=== PATIENT | male | born 1955 | race Caucasian/White ===

== ENCOUNTER 2023-01-10 14:54 | Emergency (ER) | payer MEDICARE, SELFPAY ==
[2023-01-10 15:05] VITALS: BP 140/99; PULSE 75; RESP 16; TEMP 36.8; O2SAT 97
--- NOTE | 2023-01-10 15:17 | CTR_ITS ---
PROCEDURE INFORMATION: Exam: CT Abdomen And Pelvis Without Contrast Exam date and time: 01/10/2023 4:07 PM Age: 67 years old Clinical indication: Abdominal pain; Acute; Additional info: Abdominal pain with blood in stool onset last night. TECHNIQUE: Imaging protocol: Computed tomography of the abdomen and pelvis without contrast. Radiation optimization: All CT scans at this facility use at least one of these dose optimization techniques: automated exposure control; mA and/or kV adjustment per patient size (includes targeted exams where dose is matched to clinical indication); or iterative reconstruction. Other protocol: This patient has received 0 known CTs and 0 known cardiac nuclear medicine studies in the 12 months prior to the current study. COMPARISON: CR XR chest 1V portable [id number] 01/10/2023 3:33 PM RADIATION DOSE METRICS: Total DLP (mGy-cm): 830.23 FINDINGS: Lungs: Minimal linear basilar scarring visualized left lung base. Liver: Normal. No mass. Gallbladder and bile ducts: Normal. No calcified stones. No ductal dilation. Pancreas: Normal. No ductal dilation. Spleen: Normal. No splenomegaly. Adrenal glands: Normal. No mass. Kidneys and ureters: Normal. No hydronephrosis. Stomach and bowel: Colonic diverticulosis, particularly of the descending and sigmoid colon. Associated component of wall thickening and adjacent mesenteric stranding is seen involving the distal descending and proximal sigmoid colon consistent with inflammation or diverticulitis. No findings to indicate adjacent fluid collection or abscess. Moderate stool volume. No bowel obstruction. Appendix: No evidence of appendicitis. Intraperitoneal space: No free fluid or ascites or free air.. Vasculature: Mild atherosclerotic vascular disease without aneurysmal dilatation of the abdominal aorta. Lymph nodes: Unremarkable. No enlarged lymph nodes. Urinary bladder: Unremarkable as visualized. Reproductive: Mild prostate enlargement. Bones/joints: Spondylotic change lumbar spine with degenerative disc disease lumbosacral junction. Soft tissues: Unremarkable. CT/CT abdomen pelvis wo con [id number] IMPRESSION: 1. Colonic diverticulosis with findings suggestive of inflammation or diverticulitis of the distal descending and proximal sigmoid colon, as noted above. 2. Other incidental findings, as noted above.
--- NOTE | 2023-01-10 15:18 | XR_ITS ---
WS: [id number] XR chest 1V portable [id number] REASON FOR EXAM: dyspnea/cough FINDINGS: Moderate tortuosity the thoracic aorta without aneurysmal dilatation. Normal heart size. Minimal calcified granulomatous disease bilaterally. No acute pulmonary parenchymal or pleural abnormality. Old healed rib fractures on the left. Biconcave compression deformities at T6 and T7. XR/XR chest 1V portable [id number] IMPRESSION: No acute cardiopulmonary abnormality. Old healed rib fractures. Presumed old compression deformities in the midthoracic spine.
--- NOTE | 2023-01-10 15:25 | W.ED.ABDPA2 ---
HPI - Abdominal Pain General: Chief Complaint: Abdominal Pain Stated Complaint: possible GI bleed Time Seen by Provider: 01/10/23 15:16 Source: patient Mode of arrival: ambulatory History of Present Illness: 67-year-old male presents emergency room with complaints of abdominal pain began around 8:00 last night he had eaten dinner 1830 he had a bowel movement had very difficult time with it took him about 30 minutes then started having diarrhea after that it was dark red through the night now he is continue to have dark red blood per rectum MD elicited complaint: abdominal pain Pertinent past history: gastrointestinal bleeding Onset (ago): hour(s) Pain Consistency: intermittent Location: LLQ Severity: moderate Quality: cramping Radiation: none Relieving factors: nothing Associated Symptoms: Reports bloating, change in bowel habits, change in stool character, GI cramping, diarrhea, hematochezia, melena, nausea and poor appetite; Denies anorexia, belching, chills, coffee ground emesis, constipation, dyspepsia, dysuria, excessive flatus, fever(s), heartburn, hematuria, hematemesis, fecal incontinence, loose stools, syncope and vomiting Review of Systems Const: Denies: fever(s) or chills Card: Denies: syncope GI: Reports: abdominal pain, nausea, diarrhea, bloating, GI cramping, change in bowel habits, change in stool character, hematochezia and melena; Denies: vomiting, hematemesis, coffee ground emesis, heartburn, constipation, belching, excessive flatus or fecal incontinence : Denies: dysuria, urinary frequency, urinary urgency or hematuria [facility] ED PFSH: Medical History (Updated 01/18/23 @ 00:08 by ALIZA Bedoya) No significant past medical history Surgical History (Updated 01/10/23 @ 15:35 by Chidi Crow DO) No pertinent past surgical history Social History (Updated 01/10/23 @ 15:35 by Chidi Crow DO) Smoking and tobacco status: never smoked Alcohol intake: never Physical Exam Const: GENERAL APPEARANCE: cooperative and comfortable ORIENTATION/CONSCIOUSNESS: Yes awake, Yes oriented to person, Yes oriented to place and Yes oriented to time HENMT: COMMON NORMALS: normocephalic, atraumatic and hearing grossly normal bilaterally HEAD & SCALP: normocephalic and atraumatic Resp: COMMON NORMALS: normal respiratory effort, No retractions, No use of accessory muscles and clear to auscultation bilaterally AUSCULTATION: clear to auscultation bilaterally Cardio: COMMON NORMALS: regular rate, regular rhythm and No murmurs present (Cardio) RATE: regular rate RHYTHM: regular rhythm GI: COMMON NORMALS: Soft to palpation and No hepatosplenomegaly present AUSCULTATION: Yes normoactive bowel sounds PALPATION: Yes Soft to palpation, No Tenderness to palpation present (GI), No Guarding due to palpation present (GI) and Yes No hepatosplenomegaly present : COMMON NORMALS: Yes no CVA tenderness BLADDER/KIDNEY EXAM: Yes no CVA tenderness Back/Pelvis: COMMON NORMALS: no CVA tenderness Extremity: COMMON NORMALS: normal to inspection, capillary refill normal, no clubbing, cyanosis or edema, no calf tenderness and no pedal edema Neuro: SENSORIUM/ORIENTATION: Yes oriented to person, Yes oriented to place and Yes oriented to time Skin: COMMON NORMALS: no rashes or lesions noted GENERAL SKIN EXAM: no rashes or lesions noted Course Vital Signs: Vital signs: Vital Signs Temperature 98.2 F 01/10/23 15:05 Pulse Rate 66 01/10/23 17:51 Respiratory Rate 16 01/10/23 17:51 Blood Pressure 123/78 01/10/23 17:51 Pulse Oximetry 95 01/10/23 17:51 Oxygen Delivery Me thod 01/10/23 17:00 MDM - Abdominal Pain Medical Decision Making Labs imaging and EKG reviewed. Patient has acute diverticulitis start Cipro and Flagyl. No sign of UTI or acute appendicitis or other intra-abdominal pathology no hernias or gallbladder involvement. No left nephrolithiasis. Clear liquid diet 2 days and increase as tolerated. Return if is worsening problems. Medical Records I reviewed the patient's medical records. Lab Data I reviewed the patient's lab results. 01/10/23 15:56 01/10/23 15:56 Labs/Radiology: Radiology Impressions Abdomen/Pelvis CT 01/10/23 15:17 IMPRESSION: 1. Colonic diverticulosis with findings suggestive of inflammation or diverticulitis of the distal descending and proximal sigmoid colon, as noted above. 2. Other incidental findings, as noted above. Chest X-Ray 01/10/23 15:18 IMPRESSION: No acute cardiopulmonary abnormality. Old healed rib fractures. Presumed old compression deformities in the midthoracic spine. Laboratory Results WBC 16.6 10^3/uL (4.0-10.0) H 01/10/23 15:56 RBC 5.02 10^6/uL (4.1-5.3) 01/10/23 15:56 Hgb 15.6 g/dL (11.7-16.6) 01/10/23 15:56 Hct 46.2 % (42.0-52.0) 01/10/23 15:56 MCV 92.0 fl (80-94) 01/10/23 15:56 MCH 31.1 pg (28.0-34.0) 01/10/23 15:56 MCHC 33.8 g/dL (30.0-36.0) 01/10/23 15:56 RDW 13.1 % (12.1-15.1) 01/10/23 15:56 Plt Count 187 10^3/cmm (130-400) 01/10/23 15:56 MPV 10.6 fL (7.4-10.4) H 01/10/23 15:56 Neut % (Auto) 82.7 % 01/10/23 15:56 Lymph % (Auto) 9.6 % 01/10/23 15:56 Mccracken % (Auto) 6.8 % 01/10/23 15:56 Eos % (Auto) 0.2 % 01/10/23 15:56 Baso % (Auto) 0.1 % 01/10/23 15:56 Neut # (Auto) 13.76 10^3/uL (1.8-7.7) H 01/10/23 15:56 Lymph # (Auto) 1.6 10^3/uL (0.8-4.8) 01/10/23 15:56 Mccracken # (Auto) 1.1 10^3/uL (0.2-0.9) H 01/10/23 15:56 Eos # (Auto) 0.0 10^3/uL (0.0-0.8) 01/10/23 15:56 Baso # (Auto) 0.0 10^3/uL (0.0-0.1) 01/10/23 15:56 Nucleated RBC % (auto) 0 % 01/10/23 15:56 Nucleated RBCs # 0.0 /100WBC 01/10/23 15:56 Sodium 137 mmol/L (136-145) 01/10/23 15:56 Potassium 3.7 mmol/L (3.5-5.1) 01/10/23 15:56 Chloride 101 mmol/L (98-107) 01/10/23 15:56 Carbon Dioxide 21 mmol/L (22-29) L 01/10/23 15:56 Anion Gap 18.7 (5-19) 01/10/23 15:56 BUN 14 mg/dL (8-23) 01/10/23 15:56 Creatinine 0.8 mg/dL (0.7-1.2) 01/10/23 15:56 GFR Calculation 95.8 mL/min (90-130) 01/10/23 15:56 Glucose 120 mg/dL (65-115) H 01/10/23 15:56 Calculated Osmolality 286 mOsm/kg (285-295) 01/10/23 15:56 Lactic Acid 1.4 mmol/L (0.5-2.2) 01/10/23 15:56 Calcium 8.9 mg/dL (8.5-10.5) 01/10/23 15:56 Magnesium 1.7 mg/dL (1.7-2.3) 01/10/23 15:56 Total Bilirubin 0.8 mg/dL (0.15-1.2) 01/10/23 15:56 AST 17 U/L (0-40) 01/10/23 15:56 ALT 12 U/L (0-41) 01/10/23 15:56 Alkaline Phosphatase 60 U/L (40-130) 01/10/23 15:56 Total Protein 7.2 g/dL (6.6-8.7) 01/10/23 15:56 Albumin 4.1 g/dL (3.5-5.2) 01/10/23 15:56 Globulin 3.1 g/dL (1.3-4.6) 01/10/23 15:56 Lipase 35 U/L (13-60) 01/10/23 15:56 Urine Color Dark yellow (Yellow) 01/10/23 16:31 Urine Appearance Cloudy (CLEAR) A 01/10/23 16:31 Urine pH 5 (5-7) 01/10/23 16:31 Ur Specific [place] 1.025 (1.005-1.030) 01/10/23 16:31 Urine Protein Trace (Negative) 01/10/23 16:31 Urine Glucose (UA) Norm (Normal) 01/10/23 16:31 Urine Ketones 1+ (Negative) H 01/10/23 16:31 Urine Blood Neg (Negative) 01/10/23 16:31 Urine Nitrate Negative (Negative) 01/10/23 16:31 Urine Bilirubin Neg (Negative) 01/10/23 16:31 Urine Urobilinogen Norm mg/dL (Negative) 01/10/23 16:31 Ur Leukocyte Esterase Negative (Negative) 01/10/23 16:31 Urine RBC 0-4 /hpf (0-2) H 01/10/23 16:31 Urine WBC 0-4 /hpf (0-5) H 01/10/23 16:31 Ur Squamous Epith Cells 0-4 /hpf (0-5) H 01/10/23 16:31 Amorphous Sediment Not Reportable 01/10/23 16:31 Urine Bacteria Trace /hpf (NONE) 01/10/23 16:31 Urine Mucus 1+ /hpf 01/10/23 16:31 Discharge Plan Discharge Patient Disposition: Home Clinical Impression: Diverticulitis Condition: Stable Prescriptions: New Cipro 500 mg tablet 500 mg PO BID Qty: 14 0RF ondansetron HCl 4 mg tablet 4 mg PO Q6H PRN (Reason: nausea and vomiting) Qty: 20 0RF No Action albuterol sulfate 90 mcg/actuation HFA aerosol inhaler 1 puff INHALATION Q6H PRN (Reason: Shortness Of Breath) finasteride 5 mg Tablet 5 mg PO DAILY Vitamin C 500 mg Tablet 500 mg PO DAILY Vitamin D3 25 mcg (1,000 unit) Tablet 25 mcg PO DAILY Discharge Orders: Discharge ED (Routine); Ordered 01/10/23 Ordered By: Chidi Crow Referrals: Eliu Villar MD [Primary Care Provider] - Discharge Diet: Full LIquid Discharge Activity: Increase activity as tolerated Patient Instructions: Diverticulitis (ED), Diverticulitis Diet (ED), Opioid Safety, Pain Management Activity Restrictions/Additional Instructions: You were seen today for bleeding from the rectum. Your evaluation showed a elevation in your white blood cell count that is likely due to diverticulitis that was seen on the CAT scan that was done. There was no perforation of the colon. Your hemoglobin is stable at 15.6. It is very likely you will continue to see some blood in the stool for the next few days. Recommend that you go to a clear liquid diet, you may take some simple carbohydrates with the oral antibiotics. If you have any further problems contact your primary care doctor or return to the emergency room. Coding Level of Care Code ED Equipment Maintenance Superintendent for Garry Abernathy
--- NOTE | 2023-01-10 15:40 | ECG_ITS ---
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 Measurements Intervals [place] Rate: 79 P: 82 [place]: 223 QRS: 68 QRSD: 88 T: 50 QT: 389 QTc: 446 Interpretive Statements SINUS RHYTHM WITH FIRST DEGREE AV BLOCK WITH OCCASIONAL SUPRAVENTRICULAR PREMATURE COMPLEXES NONSPECIFIC T-WAVE ABNORMALITY No previous ECG available for comparison Electronically Signed On 01-10-2023 16:20:44 UTILITY ENGINEER by Danyel Green M.D. [email or web address]
[2023-01-10 16:24] LABS: Basophils % 0.1 %; Eosinophils % 0.2 %; Hematocrit 46.2 % (42.0-52.0); Hemoglobin 15.6 g/dL (11.7-16.6); Lymphocytes # 1.6 10^3/uL (0.8-4.8); Lymphocytes % 9.6 %; Mean Corpuscular HGB Conc 33.8 g/dL (30.0-36.0); Mean Corpuscular Hemoglobin 31.1 pg (28.0-34.0); Mean Platelet Volume 10.6 fL (7.4-10.4); Monocytes # 1.1 10^3/uL (0.2-0.9); Monocytes % 6.8 %; Neutrophils # 13.76 10^3/uL (1.8-7.7); Neutrophils % 82.7 %; Nucleated Red Blood Cells % 0 %; Platelet Count 187 10^3/cmm (130-400); Red Blood Count 5.02 10^6/uL (4.1-5.3); Red Cell Distribution Width 13.1 % (12.1-15.1); White Blood Count 16.6 10^3/uL (4.0-10.0)
[2023-01-10 16:30] VITALS: BP 131/94; PULSE 73; O2SAT 95
[2023-01-10 17:00] VITALS: BP 129/79; PULSE 70; O2SAT 96
[2023-01-10 17:00] LABS: Alanine Aminotransferase 12 U/L (0-41); Albumin Level 4.1 g/dL (3.5-5.2); Alkaline Phosphatase 60 U/L (40-130); Aspartate Amino Transferase 17 U/L (0-40); Blood Urea Nitrogen 14 mg/dL (8-23); Calcium 8.9 mg/dL (8.5-10.5); Carbon Dioxide 21 mmol/L (22-29); Chloride 101 mmol/L (98-107); Globulin 3.1 g/dL (1.3-4.6); Glomerular Filtration Rate 95.8 mL/min (90-130); Glucose 120 mg/dL (65-115); Lactic Sepsis W/Reflex 1.4 mmol/L (0.5-2.2); Lipase 35 U/L (13-60); Magnesium 1.7 mg/dL (1.7-2.3); Osmolality Calculated 286 mOsm/kg (285-295); Sodium 137 mmol/L (136-145); Total Bilirubin 0.8 mg/dL (0.15-1.2); Total Protein 7.2 g/dL (6.6-8.7)
[2023-01-10 17:02] LABS: Anion Gap 18.7 (5-19); Potassium 3.7 mmol/L (3.5-5.1)
[2023-01-10 17:13] LABS: Add Urine Microscopic? YES; Bacteria Urine TRACE /hpf; Bilirubin Urine Neg (Negative); Blood Urine Neg (Negative); Glucose Urine UA Norm (Normal); Ketones Urine 1+ (Negative); Leukocyte Esterase Urine Negative (Negative); Mucus Urine 1+ /hpf; Nitrate Urine Negative (Negative); Protein Urine Trace (Negative); RBC Urine 0-4 /hpf (0-2); Specific Gravity, Urine 1.025 (1.005-1.030); Squamous Epithelial Cell Urine 0-4 /hpf (0-5); Urine Appearance Cloudy (CLEAR); Urine Color Dark Yellow (Yellow); Urobilinogen Urine Norm (Negative); WBC Urine 0-4 /hpf (0-5); pH Urine 5 (5-7)
[2023-01-10 17:51] VITALS: BP 123/78; PULSE 66; RESP 16; O2SAT 95
== END 2023-01-10 17:52 | disposition home or self-care (01) ==
PROVIDERS: Emergency Provider Family Medicine; PCP Family Medicine
DX: K57.92 Diverticulitis of intestine, part unspecified, without perforation or abscess without bleeding (principal)
CPT/HCPCS: 36415; 71045; 74176; 80053; 81001; 83605; 83690; 83735; 85025; 87040; 93005; 99285

== ENCOUNTER 2025-01-19 01:47 | Emergency (ER) | payer MEDICARE, SELFPAY ==
[2025-01-19 01:54] VITALS: BP 160/94; PULSE 66; RESP 18; TEMP 36.6; O2SAT 94; BMI 27.8
[2025-01-19] MEDS: tetracaine 0.5% Op Soln 4 mL Btl 1 DROP EYEAFF (02:02)
[2025-01-19] MEDS: fluorescein 1 mg Strip EYEAFF (02:02)
--- NOTE | 2025-01-19 02:09 | W.ED.EYEPROB ---
HPI - Eye Problem General: Chief complaint: Eye Problems Stated complaint: Rt EyePain Time Seen by Provider: 01/19/25 01:57 History of Present Illness: Patient arrived via private vehicle to the ER with complaints of right eye discomfort. About 8 PM last night some he thought he was using eyedrops and but accidentally grabbed some chlorhexidine soap and squirted that in his right eye. Immediately wiped it out and rinsed it out with water but is still wearing at this time. Patient's eyes were red and irritated patient has no vision deficit at this time. Related Data Home Medications ?Medication ?Instructions ?Recorded ?Confirmed albuterol sulfate 90 mcg/actuation 1 puff inhalation Q6H PRN 01/10/23 01/10/23 aerosol inhaler Shortness Of Breath ascorbic acid (vitamin C) 500 mg 500 mg PO DAILY 01/10/23 01/10/23 tablet (Vitamin C) cholecalciferol (vitamin D3) 25 25 mcg PO DAILY 01/10/23 01/10/23 mcg (1,000 unit) tablet (Vitamin D3) finasteride 5 mg tablet 5 mg PO DAILY 01/10/23 01/10/23 Previous Rx's ?Medication ?Instructions ?Recorded ciprofloxacin HCl 500 mg tablet 500 mg PO BID #14 tabs 01/10/23 (Cipro) ondansetron HCl 4 mg tablet 4 mg PO Q6H PRN nausea and 01/10/23 vomiting #20 tabs Allergies Allergy/AdvReac Type Severity Reaction Status Date / Time Sulfa (Sulfonamide Allergy Unknown Verified 01/19/25 01:58 Antibiotics) Review of Systems General: Reports: 10 or more systems reviewed and unremarkable except in HPI and below PFSH ED PFSH: Medical History No significant past medical history Surgical History No pertinent past surgical history Social History Smoking and tobacco/nicotine status: never used tobacco/nicotine Alcohol intake: never Physical Exam Const: COMMON NORMALS: no acute distress, average body habitus, patient oriented x3, no limitations, healthy appearing, alert and well nourished HENMT: COMMON NORMALS: normocephalic, atraumatic, hearing grossly normal bilaterally, external ears normal, Normal external nose present, moist oral mucous membranes and oropharynx normal HEAD & SCALP: normocephalic and atraumatic NOSE: Normal external nose present EXTERNAL EAR: Yes external ears normal Eye: COMMON NORMALS: Equal, round and reactive pupils present, EOMs intact bilaterally, negative for conjunctivae normal (Right conjunctivitis) and no scleral icterus CONJUNCTIVA: No conjunctivae normal (Right conjunctivitis) PUPIL: Yes Equal, round and reactive pupils present OTHER: anesthetized with tetracaine and fluorescein used with black light reveals no obvious corneal ulcerations or abrasions Neck/C-Spine: COMMON NORMALS: no JVD Chest: COMMONS NORMALS: normal inspection of the chest and normal palpation of entire chest wall Resp: COMMON NORMALS: normal respiratory effort, No retractions, No use of accessory muscles and clear to auscultation bilaterally AUSCULTATION: clear to auscultation bilaterally Cardio: COMMON NORMALS: no JVD, regular rate, regular rhythm, S1 normal heart sound present, S2 normal heart sound present, No gallops present (Cardio), No clicks present (Cardio), No murmurs present (Cardio) and No rub (Cardio) RATE: regular rate RHYTHM: regular rhythm HEART SOUNDS: S1 normal heart sound present and S2 normal heart sound present Neuro: COMMON NORMALS: patient oriented x3 SENSORIUM/ORIENTATION: Yes alert Course Vital Signs: Vital signs: Vital Signs Temperature 97.9 F 01/19/25 01:54 Pulse Rate 66 01/19/25 01:54 Respiratory Rate 18 01/19/25 01:54 Blood Pressure 160/94 01/19/25 01:54 Pulse Oximetry 94 01/19/25 01:54 Oxygen Delivery Me thod Room Air 01/19/25 01:54 MDM - Eye Problem Medical Decision Making Patient has negative eye exam other than conjunctivitis secondary to the chlorhexidine soap. Patient be discharged home. 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 Medical Records I reviewed the patient's medical records. Lab Data I reviewed the patient's lab results. No radiology studies performed this visit Discharge Plan Discharge Patient Disposition: Home Clinical Impression: Acute chemical conjunctivitis of right eye Condition: Stable Prescriptions: No Action albuterol sulfate 90 mcg/actuation HFA aerosol inhaler 1 puff INHALATION Q6H PRN (Reason: Shortness Of Breath) finasteride 5 mg Tablet 5 mg PO DAILY Vitamin C 500 mg Tablet 500 mg PO DAILY Vitamin D3 25 mcg (1,000 unit) Tablet 25 mcg PO DAILY Cipro 500 mg tablet 500 mg PO BID Qty: 14 0RF ondansetron HCl 4 mg tablet 4 mg PO Q6H PRN (Reason: nausea and vomiting) Qty: 20 0RF Discharge Orders: Discharge ED (Routine); Ordered 01/19/25 Ordered By: Sherwin Arnett Referrals: Eliu Villar MD [Primary Care Provider] - 1 week Patient Instructions: Conjunctivitis (ED) Activity Restrictions/Additional Instructions: If not significantly better within 24 hours please follow-up with ophthalmology. If worsening please return to the ER. Activity restrictions/additional instructions: Thank you for choosing [facility] for your healthcare needs today. Please realize that you were seen in the emergency department and that we are providing you with an emergency medical screening exam and this may not be a complete and all exclusive of all testing and/or medical workup we may need to determine your element or severity of your illness. It is very important that you follow-up as instructed with your primary care provider or specialist for the additional evaluation and to discuss your medical treatment plan. You may return to the emergency department should you have concerns or if your condition changes or worsens in any way. Print Language: [place] Verde[place] Coding Level of Care Code ED Bank Teller for Garry Abernathy
[2025-01-19 02:20] VITALS: BP 160/94; PULSE 62; RESP 16; O2SAT 99
== END 2025-01-19 02:25 | disposition home or self-care (01) ==
PROVIDERS: Emergency Provider Emergency Medicine; PCP Family Medicine
DX: H10.211 Acute toxic conjunctivitis, right eye (principal)
CPT/HCPCS: 99283

== ENCOUNTER 2025-04-29 06:50 | Outpatient (CLI) | payer MEDICARE, SELFPAY ==
--- NOTE | 2025-04-29 07:16 | MR_ITS ---
WS: [id number] MRI HEAD WITH CONTRAST WITH ATTENTION TO THE INTERNAL AUDITORY CANALS TECHNIQUE: Sagittal T1, T2 axial, T2 axial flair, axial susceptibility weighted imaging, axial diffusion weighted images, and coronal T2 images were obtained. Pre and post T1 axial and post T1 coronal images. ADC and FSPGR images. Post gadolinium images with attention to the internal auditory canals. Axial fiesta imaging. CLINICAL INFORMATION: BILATERAL HEARING LOSS COMPARISON: None. FINDINGS: No evidence of restricted diffusion to suggest acute ischemia. Mild small vessel changes. Moderate parenchymal volume loss. Tiny chronic lacunar infarct RIGHT inferior cerebellum. Normal vascular flow voids at the skull base. No extra- axial fluid collections. No evidence of mass or mass effect. Mild mucosal thickening in the paranasal sinuses. Mastoid air cells are well aerated. No hemosiderin on susceptibility-weighted images. No other acute findings. MR/MR iac's wo/w con* [id number] IMPRESSION: 1. No evidence of restricted diffusion to suggest acute ischemia. 2. Proximal 7th and 8th cranial nerves appear normal. No evidence of enhancing IAC or CP angle mass. 3. Mastoid air cells are well aerated. 4. Mild small vessel changes with moderate parenchymal volume loss. 5. No hemosiderin on the susceptibly weighted images.
== END 2025-04-29 06:51 | disposition home or self-care (01) ==
PROVIDERS: PCP Family Medicine; Visit Provider Specialist
DX: H90.3 Sensorineural hearing loss, bilateral (principal); R93.0 Abnormal findings on diagnostic imaging of skull and head, not elsewhere classified; J34.89 Other specified disorders of nose and nasal sinuses
CPT/HCPCS: 70553

== ENCOUNTER 2025-09-08 09:06 | Emergency (ER) | payer MEDICARE, SELFPAY ==
[2025-09-08] VITALS (14 sets, daily range): BP systolic 78–103; BP diastolic 43–54; PULSE 47–75; RESP 13–28; O2SAT 92–99; BMI 27.8
--- NOTE | 2025-09-08 09:13 | CT_ITS ---
WS: [id number] CT HEAD TECHNIQUE: Noncontrast CT of the head obtained from the skullbase to the vertex. CLINICAL INFORMATION: Symptoms of acute stroke COMPARISON: None. DLP: [address] scans at [facility] use at least one of these dose optimization techniques: automated exposure control; mA and/or kV adjustment per patient size (includes targeted exams where dose is matched to clinical indication); or iterative reconstruction. FINDINGS: No evidence of intracranial hemorrhage or mass effect. Ventricular system and basal cisterns are patent. Mild small vessel changes with mild parenchymal volume loss. No extra-axial fluid collections. No evidence of mass or mass effect. Vascular calcification. Low-attenuation change adjacent to the posterior horn LEFT lateral ventricle was present on the prior MRIa Paranasal sinuses and mastoid air cells are well aerated. .Normal visualized soft tissues. CT/CT head thrombolytic [id number] IMPRESSION: 1. No evidence of intracranial hemorrhage or mass effect. 2. No acute intracranial findings. Notified Jenniffer Lima MD at 09/08/2025 9:32 AM.
--- NOTE | 2025-09-08 09:13 | XRR_ITS ---
PROCEDURE INFORMATION: Exam: XR Chest Exam date and time: 09/08/2025 10:18 AM Age: 69 years old Clinical indication: Chest wall pain; Additional info: CVA TECHNIQUE: Imaging protocol: Radiologic exam of the chest. Views: 1 view. COMPARISON: CT angio chest [id number] 09/08/2025 9:31 AM FINDINGS: Lungs: Unremarkable. No consolidation. Pleural spaces: Unremarkable. No pleural effusion. No pneumothorax. Heart/Mediastinum: The heart is slightly enlarged. There is calcified plaque involving the aorta. Bones/joints: Unremarkable. XR/XR chest 1V portable [id number] IMPRESSION: 1. Mild cardiomegaly.
--- NOTE | 2025-09-08 09:13 | CT_ITS ---
WS: [id number] CTA HEAD AND NECK TECHNIQUE: Contrast enhanced CTA of the head and neck with coronal and sagittal reformatted images and maximum intensity projection (MIP) images. NASCET criteria utilized. CLINICAL INFORMATION: cva COMPARISON: None. DLP: 506.[address] scans at [facility] use at least one of these dose optimization techniques: automated exposure control; mA and/or kV adjustment per patient size (includes targeted exams where dose is matched to clinical indication); or iterative reconstruction. FINDINGS: RIGHT: RIGHT common carotid artery is patent. No significant RIGHT ICA stenosis. Tortuous RIGHT ICA at the skull base. RIGHT ICA remains patent to the skull base. Dissection involves the innominate artery origin but remains perfused by the true lumen LEFT: Dissection involves the LEFT common carotid artery origin but remains perfused by the true lumen. No significant LEFT ICA stenosis. Extremely tortuous LEFT cervical ICA remains patent to the skull base. Beading like irregularity in both cervical ICAs distal to the bifurcation may be due to atherosclerosis or possibly fibromuscular dysplasia. Extremely tortuous cervical ICAs bilaterally. INTRACRANIAL CTA: No proximal flow-limiting stenosis. Basilar artery is patent. Normal vascularity to the [employer] territory bilaterally. Tortuous ICAs are patent at the skull base. Small RIGHT A1 segment. Normal vascularity to the KAY and MCA territories bilaterally. No proximal flow-limiting intracranial stenosis. CT/CT angio headneck* [id number] IMPRESSION: 1. 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 2. Common carotid arteries remain perfused with no significant ICA stenosis at the bifurcations. Tortuous ICAs are patent to the skull base. 3. No flow-limiting intracranial stenosis. 4. Dissection extends into the innominate origin and LEFT common carotid arter y origin which remain perfused by the true lumen. 5. Dissection involves the LEFT subclavian artery origin which remains perfuse d by the true lumen. 6. LEFT dominant vertebral artery. Smaller but patent RIGHT vertebral artery. 7. Beading like irregularity in both cervical ICAs distal to the bifurcation m ay be due to atherosclerosis or possibly fibromuscular dysplasia. Extremely tor tuous cervical ICAs bilaterally. Notified Jenniffer Lima MD at 09/08/2025 9:54 AM.
--- NOTE | 2025-09-08 09:16 | ECG_ITS ---
[employer] 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
--- NOTE | 2025-09-08 09:20 | W.ED.NEUROSD ---
HPI - Neuro Symptoms/Deficit General: Chief Complaint: Neuro Symptoms/Deficit Stated Complaint: Eyes Blurry Confused Dizzy Time Seen by Provider: 09/08/25 09:09 Source: patient Mode of arrival: ambulatory Limitations: no limitations History of Present Illness: 69-year-old male states that he had sudden onset of feeling very dizzy and blurry vision with difficulty seeing it started at 715 this morning. Patient denies any headaches he is hypotensive. Denies any vomiting or diarrhea. Denies any history of stroke in the past. States he is having a hard time walking due to the dizziness. He has no slurred speech or one-sided weakness. No facial droop Related Data Home Medications ?Medication ?Instructions ?Recorded ?Confirmed albuterol sulfate 90 mcg/actuation 1 puff inhalation Q6H PRN 01/10/23 09/08/25 aerosol inhaler Shortness Of Breath ascorbic acid (vitamin C) 500 mg 500 mg PO DAILY 01/10/23 09/08/25 tablet (Vitamin C) cholecalciferol (vitamin D3) 25 25 mcg PO DAILY 01/10/23 09/08/25 mcg (1,000 unit) tablet (Vitamin D3) finasteride 5 mg tablet 5 mg PO DAILY 01/10/23 09/08/25 irbesartan 150 mg tablet 150 mg PO DAILY 09/08/25 09/08/25 Allergies Allergy/AdvReac Type Severity Reaction Status Date / Time Sulfa (Sulfonamide Allergy Unknown Verified 01/19/25 01:58 Antibiotics) FOR[facility]LY [facility] ED PFSH: Medical History (Updated 09/08/25 @ 10:52 by Jenniffer Lima MD) No significant past medical history Surgical History No pertinent past surgical history Social History Smoking and tobacco/nicotine status: never used tobacco/nicotine Alcohol intake: never NIH stroke score NIHSS: Level Of Consciousness - 1a: 0 Level Of Consciousness Questions - 1b: One Correct Level Of Consciousness Commands - 1c: Both Correct Best Gaze - 2: Normal Visual Mcdonough - 3: Bilateral Facial Palsy - 4: Normal Motor Arm Right - 5: No Drift Motor Arm Left - 5: No Drift Motor Leg Right - 6: No Drift Motor Leg Left - 6: No Drift Limb Ataxia - 7: Absent Sensory - 8: Normal Best Language - 9: No Aphasia Dysarthia - 10: Normal Extinction And Inattention - 11: 0 Score: Total Score: 4 Physical Exam Const: COMMON NORMALS: patient oriented x3 HENMT: COMMON NORMALS: normocephalic and atraumatic HEAD & SCALP: normocephalic and atraumatic Eye: COMMON NORMALS: Equal, round and reactive pupils present and EOMs intact bilaterally PUPIL: Yes Equal, round and reactive pupils present OTHER: unable to recognize fingers with either eyes Neck/C-Spine: COMMON NORMALS: full ROM and supple Chest: COMMONS NORMALS: normal inspection of the chest Resp: COMMON NORMALS: normal respiratory effort, No retractions, No use of accessory muscles and clear to auscultation bilaterally AUSCULTATION: clear to auscultation bilaterally Cardio: COMMON NORMALS: regular rate, regular rhythm and No murmurs present (Cardio) RATE: regular rate RHYTHM: regular rhythm GI: COMMON NORMALS: Normal to inspection, nondistended, normoactive bowel sounds present, Soft to palpation, non-tender and no masses PALPATION: Yes Soft to palpation Extremity: COMMON NORMALS: normal to inspection and full ROM Neuro: COMMON NORMALS: patient oriented x3 and moves all extremities; negative for no focal motor deficits Psych: COMMON NORMALS: mental status grossly normal, Normal thought process present and cooperative THOUGHT PROCESS: Normal thought process present Skin: COMMON NORMALS: no rashes or lesions noted and no wounds GENERAL SKIN EXAM: no rashes or lesions noted Course Vital Signs: Vital signs: Vital Signs Pulse Rate 48 L 09/08/25 09:55 Respiratory Rate 23 H 09/08/25 09:55 Blood Pressure 103/49 09/08/25 09:45 Pulse Oximetry 97 09/08/25 09:55 Oxygen Delivery Me thod Room Air 09/08/25 09:09 MDM - Neuro Symptoms/Deficit Medical Decision Making Patient presents here with lightheadedness along with some vision loss CT and CT angio showed no signs of stroke but CT of his chest does show an aortic dissection both ascending and descending. Patient has had no hypertension here. I initially spoke to [facility] and their CT surgeon stated that he was not available. I then called [facility] and their CT surgeon wanted surgery and they had no backup. I then called [facility] their CT surgeon did except and I spoke to the emergency room physician Dr. Reilly who is excepting ER to ER and will fly there at this time. Patient has been stable while in the ER I went over all of this with him and his and they understand agree to plan to transfer for high-level care of CT surgery Medical Records I reviewed the patient's medical records. Lab Data I reviewed the patient's lab results. 09/08/25 09:17 09/08/25 09:[address] 09/08/25 09:13 IMPRESSION: 1. No evidence of intracranial hemorrhage or mass effect. 2. No acute intracranial findings. Notified Jenniffer Lima MD at 09/08/2025 9:32 AM. Head/Neck CTA 09/08/25 09:13 IMPRESSION: 1. Acute ascending and descending aortic dissection extending into the upper abdomen seen on the following chest imaging. 2. Common carotid arteries remain perfused with no significant ICA stenosis at the bifurcations. Tortuous ICAs are patent to the skull base. 3. No flow-limiting intracranial stenosis. 4. Dissection extends into the innominate origin and LEFT common carotid artery origin which remain perfused by the true lumen. 5. Dissection involves the LEFT subclavian artery origin which remains perfused by the true lumen. 6. LEFT dominant vertebral artery. Smaller but patent RIGHT vertebral artery. 7. Beading like irregularity in both cervical ICAs distal to the bifurcation may be due to atherosclerosis or possibly fibromuscular dysplasia. Extremely tortuous cervical ICAs bilaterally. Notified Jenniffer Lima MD at 09/08/2025 9:54 AM. Chest CTA 09/08/25 09:30 IMPRESSION: 1. Ascending and descending aortic dissection with true and false lumens extending from just distal to the aortic root to the upper abdomen. 2. Great vessels are involved by the dissection but remained well perfused by the true lumen. Mild narrowing of the RIGHT innominate origin 3. Poor perfusion to the celiac which almost exclusively arises from the false lumen 4. SMA and proximal renal arteries remain patent arising from the true lumen. Dissection terminates just above the renal artery origins Notified Jenniffer Lima MD at 09/08/2025 10:00 AM. Laboratory Results WBC 8.57 10^3/uL (3.29-11.43) 09/08/25 09:17 RBC 4.41 10^6/uL (3.85-5.65) 09/08/25 09:17 Hgb 13.90 g/dL (11.27-16.99) 09/08/25 09:17 Hct 40.1 % (37-53) 09/08/25 09:17 MCV 90.9 fl (82-101) 09/08/25 09:17 MCH 31.5 pg (27-33) 09/08/25 09:17 MCHC 34.7 g/dL (30-55) 09/08/25 09:17 RDW 13.8 % (12.1-15.1) 09/08/25 09:17 Plt Count 159 10^3/cmm (157-399) 09/08/25 09:17 MPV 9.8 fL (7.4-10.4) 09/08/25 09:17 Neut % (Auto) 62.9 % 09/08/25 09:17 Lymph % (Auto) 25.8 % 09/08/25 09:17 Stewart % (Auto) 7.5 % 09/08/25 09:17 Eos % (Auto) 2.6 % 09/08/25 09:17 Baso % (Auto) 0.7 % 09/08/25 09:17 Neut # (Auto) 5.40 10^3/uL (1.8-7.7) 09/08/25 09:17 Lymph # (Auto) 2.2 10^3/uL (0.8-4.8) 09/08/25 09:17 Stewart # (Auto) 0.6 10^3/uL (0.2-0.9) 09/08/25 09:17 Eos # (Auto) 0.2 10^3/uL (0.0-0.8) 09/08/25 09:17 Baso # (Auto) 0.1 10^3/uL (0.0-0.1) 09/08/25 09:17 Nucleated RBC % (auto) 0 % 09/08/25 09: Nucleated RBCs # 0.0 /100WBC 09/08/25 09:17 PT 14.10 SECONDS (12.1-14.9) 09/08/25 09:17 INR 1.02 (0.8-1.2) 09/08/25 09:17 APTT 26.3 SECONDS (23.9-36.7) 09/08/25 09:17 Sodium 139 mmol/L (136-145) 09/08/25 09:17 Potassium 3.8 mmol/L (3.5-5.1) 09/08/25 09:17 Chloride 101 mmol/L (98-107) 09/08/25 09:17 Carbon Dioxide 25 mmol/L (22-29) 09/08/25 09:17 Anion Gap 16.8 (5-19) 09/08/25 09:17 BUN 14 mg/dL (8-23) 09/08/25 09:17 Creatinine 1.1 mg/dL (0.7-1.2) 09/08/25 09:17 GFR Calculation Not Reportable 09/08/25 09:17 Glucose 126 mg/dL (65-115) H 09/08/25 09:17 POC Glucose 109 mg/dL (70-110) 09/08/25 09:15 Calculated Osmolality 290 mOsm/kg (285-295) 09/08/25 09:17 Calcium 8.8 mg/dL (8.5-10.5) 09/08/25 09:17 Total Bilirubin 0.6 mg/dL (0.15-1.2) 09/08/25 09:17 AST 17 U/L (0-40) 09/08/25 09:17 ALT 12 U/L (0-41) 09/08/25 09:17 Alkaline Phosphatase 61 U/L (40-130) 09/08/25 09:17 Troponin T Baseline 10 ng/L (0-15) 09/08/25 09:17 Total Protein 6.5 g/dL (6.6-8.7) L 09/08/25 09:17 Albumin 3.8 g/dL (3.5-5.2) 09/08/25 09:17 Globulin 2.7 g/dL (1.3-4.6) 09/08/25 09:17 All radiology interpretation(s) finalized by discharge EKG Data EKG 1: I personally reviewed and interpreted this EKG as follows: EKG interpretation date: 09/08/25 EKG interpretation time: 09:37 Interpretation: sinus gurvinder hr [address] or t wave abnormalities Critical Care Time Critical Care Time: Critical Care Time: Yes Total Critical Care Time: 40 Attestation: The high probability of a clinically significant, sudden or life threatening deterioration of the patient's cv/neuro system(s) required my full and direct attention, intervention and personal management. The critical care time is as shown. This time is in addition to time spent performing any reported procedures but includes the following: [x] Data and vital sign review and interpretation [x] Patient assessment, examination and intervention [x] Documentation [x] Medication orders and management Discharge Plan Discharge Patient Disposition: Xfer Short-Term Hosp Clinical Impression: Acute thoracic aortic dissection Condition: Stable Referrals: Eliu Villar MD [Primary Care Provider, [facility]] Print Language: Nepali Coding Level of Care Code ED National Business Director for Garry Abernathy
--- NOTE | 2025-09-08 09:30 | CT_ITS ---
WS: [id number] CTA THORACIC TECHNIQUE: Contrast enhanced CTA of the thoracic aorta with coronal and sagittal reformatted images and maximum intensity projection (MIP) images. CLINICAL INFORMATION: ABNORMAL STUDY COMPARISON: None. DLP: 473.[address] scans at [facility] use at least one of these dose optimization techniques: automated exposure control; mA and/or kV adjustment per patient size (includes targeted exams where dose is matched to clinical indication); or iterative reconstruction. FINDINGS: Ascending and descending aortic dissection extending from proximal aorta just distal to the root into the upper abdominal aorta. True and false lumens are visualized. Dissection involves all the origins of the great vessels which remain well perfused by the true lumen. Mild narrowing of the innominate origin. LEFT common carotid artery origin and LEFT subclavian artery origins remain well perfused. Takeoffs of the vertebral arteries are patent. LEFT dominant vertebral artery. Proximal main pulmonary arteries are normal. No pericardial effusion. Poor perfusion to the celiac which arises from the false lumen. SMA remains patent. Proximal renal arteries are patent. Small esophageal hiatal hernia. Adrenal glands are normal. Lungs are well aerated. CT/CT angio chest [id number] IMPRESSION: 1. Ascending and descending aortic dissection with true and false lumens exten ding from just distal to the aortic root to the upper abdomen. 2. Great vessels are involved by the dissection but remained well perfused by the true lumen. Mild narrowing of the RIGHT innominate origin 3. Poor perfusion to the celiac which almost exclusively arises from the false lumen 4. SMA and proximal renal arteries remain patent arising from the true lumen. Dissection terminates just above the renal artery origins Notified Jenniffer Lima MD at 09/08/2025 10:00 AM.
[2025-09-08 09:33] LABS: Hematocrit 40.1 % (37-53); Hemoglobin 13.90 g/dL (11.27-16.99); Mean Corpuscular HGB Conc 34.7 g/dL (30-55); Mean Corpuscular Hemoglobin 31.5 pg (27-33); Mean Corpuscular Volume 90.9 fl (82-101); Nucleated Red Blood Cells % 0 %; Platelet Count 159 10^3/cmm (157-399); Red Blood Count 4.41 10^6/uL (3.85-5.65); White Blood Count 8.57 10^3/uL (3.29-11.43)
[2025-09-08] MEDS: iohexol 350 mg/mL 500 mL Btl (per mL) IV (09:40)
[2025-09-08 09:43] LABS: Alanine Aminotransferase 12 U/L (0-41); Albumin Level 3.8 g/dL (3.5-5.2); Alkaline Phosphatase 61 U/L (40-130); Anion Gap 16.8 (5-19); Aspartate Amino Transferase 17 U/L (0-40); Blood Urea Nitrogen 14 mg/dL (8-23); Calcium 8.8 mg/dL (8.5-10.5); Carbon Dioxide 25 mmol/L (22-29); Chloride 101 mmol/L (98-107); Creatinine Clr Calc Pharmacy 72.9678; Globulin 2.7 g/dL (1.3-4.6); Glucose 126 mg/dL (65-115); Osmolality Calculated 290 mOsm/kg (285-295); Potassium 3.8 mmol/L (3.5-5.1); Sodium 139 mmol/L (136-145); Total Protein 6.5 g/dL (6.6-8.7)
--- NOTE | 2025-09-08 09:48 | PC.PHAR ---
Verified current medications with MELCHOR Lazar
[2025-09-08 09:58] LABS: INR 1.02 (0.8-1.2); Prothrombin Time 14.10 SECONDS (12.1-14.9); Troponin(5th) Baseline 10 ng/L (0-15)
[2025-09-08 09:59] LABS: Partial Thromboplastin Time 26.3 SECONDS (23.9-36.7)
--- NOTE | 2025-09-08 10:12 | DCPLANNER ---
0921 Dr. Lima asked for telestroke [facility] 3 LKW [id number]. called at 0921 spoke to [facility] until 09 At 0946 [facility] was on telestroke and Janie said to activate the stand by AEL. AEL gave a 24 min ETA for ael 12 from [facility].
== END 2025-09-08 11:09 | disposition short-term general hospital (02) ==
PROVIDERS: Emergency Provider Emergency Medicine; PCP Family Medicine
DX: I71.010 Dissection of ascending aorta (principal); I71.012 Dissection of descending thoracic aorta
CPT/HCPCS: 36415; 36416; 70450; 70496; 70498; 71045; 71275; 80053; 82962; 84484; 85025; 85610; 85730; 93005; 99285; J7030

== ENCOUNTER 2025-11-09 11:49 | Outpatient (CLI) | payer MEDICARE, SELFPAY ==
--- NOTE | 2025-11-09 11:53 | CT_ITS ---
WS: [id number] CT CHEST ANGIOGRAPHY WITH REFORMATS HISTORY: ELEVATED D DIMER TECHNIQUE: Contiguous axial images are obtained through the chest during arterial injection of intravenous contrast. Images are reconstructed to evaluate the pulmonary arteries. MIP imaging also reviewed. All CT scans at [facility] use at least one of these dose optimization techniques: automated exposure control; mA and/or kV adjustment per patient size (includes targeted exams where dose is matched to clinical indication); or iterative reconstruction. CONTRAST: Omnipaque 350; 100 mL IV. DLP: 402.15 mGy.cm COMPARISON: 09/08/2025, chest radiograph 11/07/2025 Good opacification of the pulmonary arteries. Normal size pulmonary artery. No central filling defect in the main pulmonary artery. Thrombus is noted in a segmental branch extending into subsegmental branches in the RIGHT lower lobe. No additional emboli identified. No RIGHT heart strain. LEFT ventricle is slightly dilated. There is correct course of regurgitation into the hepatic veins. No pericardial or pleural effusions. Thoracic aorta is ectatic and mildly dilated. Known aortic dissection noted on 09/08/2025. This study is not adequate to evaluate the aortic dissection as no IV contrast was is within the aorta. Patient is undergone a repair procedure. Prior CABG. Mild anterior wedging of T7. CT/CT angio chest PE protcl [id number] IMPRESSION: 1. Minimal burden DVT in a peripheral RIGHT lower lobe segmental to subsegment al pulmonary artery. 2. Dilated thoracic aorta. This study was protocoled to evaluate the pulmonary arteries. No contrast in the aorta to evaluate the dissection that was noted o n 09/08/2025 or the repair. 3. Mild LEFT heart enlargement. LEFT heart appears larger than it did on the p rior study from 09/08/2025. 4. Tricuspid regurgitation into the hepatic veins. 5. No pneumonia. Notified Eliu Villar MD at 11/09/2025 12:[address] Villar was unavailable at the time of this interpretation. Mr. Fu was directed back to Dr. Villar office at this time.
[2025-11-09] MEDS: iohexol 350 mg/mL 500 mL Btl (per mL) IV (12:26)
== END 2025-11-09 11:50 | disposition home or self-care (01) ==
LOC: RAD 11:51
PROVIDERS: PCP Family Medicine; Visit Provider Family Medicine
DX: R79.89 Other specified abnormal findings of blood chemistry (principal); I77.810 Thoracic aortic ectasia; I51.7 Cardiomegaly; I36.1 Nonrheumatic tricuspid (valve) insufficiency
CPT/HCPCS: 71275

== ENCOUNTER → 2025-11-10 14:41 | Outpatient (BNVA) | payer MEDICARE, SELFPAY | PROVIDERS: PCP Family Medicine; Visit Provider Internal Medicine Cardiovascular Disease | DX: I35.1 Nonrheumatic aortic (valve) insufficiency (principal); Z51.89 Encounter for other specified aftercare; I10 Essential (primary) hypertension; I26.99 Other pulmonary embolism without acute cor pulmonale; Z98.890 Other specified postprocedural states; R07.9 Chest pain, unspecified; I49.8 Other specified cardiac arrhythmias; I44.0 Atrioventricular block, first degree | CPT/HCPCS: 93005; 99204 ==

== ENCOUNTER 2025-11-25 08:22 | Outpatient (CLI) | payer MEDICARE, SELFPAY ==
--- NOTE | 2025-11-25 08:30 | USCV_ITS ---
Keyon Fu Age: 70 Gender: M : 1955 Exam Date: 11/25/2025 08:55 Ordering Phys: Ashish Martinez MD ([email or web address]) Technologist: OSIEL Exam Location: [facility] Indication: h/o ascending AO repair BP: 164 / 90 HR: 85 Rhythm: Sinus Technical Quality: Adequate MEASUREMENTS (Male / Female) Normal Values 2D ECHO LV Diastolic Diameter PLAX 5.7 cm 4.2 - 5.9 / 3.9 - 5.3 cm IVS Diastolic Thickness 1.0 cm 0.6 - 1.0 / 0.6 - 0.9 cm IVS Systolic Thickness 1.0 cm LVPW Diastolic Thickness 0.9 cm 0.6 - 1.0 / 0.6 - 0.9 cm LVPW Systolic Thickness 1.0 cm LVOT Diameter 2.1 cm LV Ejection Fraction 2D Teich 14.8 % LV Ejection Fraction MOD 4C 56.7 % LV Ejection Fraction MOD 2C 53.9 % LV Ejection Fraction 2C AL 54.1 % LA Diameter 2.9 cm RA Systolic Volume 4C AL 40.9 ml RA Systolic Volume 4C MOD 38.4 ml LA Sys Volume AL 35.0 cm cubed LA Sys Volume Index AL 16.0 cm cubed/m squared Aorta at Sinotubular Diameter 3.1 cm IVC Diameter 2.3 cm M-MODE LA Ao Ratio MM 1.1 AV Cusp Separation MM 1.9 cm DOPPLER AV Peak Velocity 95.0 cm/s LVOT Peak Velocity 63.0 cm/s AV Area Cont Eq vti 2.4 cm squared AV Area Cont Eq pk 2.3 cm squared MV Peak Velocity 71.0 cm/s MV Area PHT 4.8 cm squared Mitral E to A Ratio 1.0 TR Peak Velocity 104.0 cm/s TR Peak Gradient 4.3 mmHg TV Peak E Velocity 40.0 cm/s PV Peak Velocity 71.0 cm/s FINDINGS Left Ventricle Normal left ventricular cavity size. Akinesis of the basal inferoseptal and mid and basal inferior wall segments with overall normal ejection fraction of 54%. Normal left ventricular wall thickness. Indeterminate left ventricular diastolic function due to absence of complete TR velocity envelope Right Ventricle Normal right ventricular size and systolic function. Right Atrium Normal right atrial size. Left Atrium Normal left atrial size. IA Septum Normal appearance of the interatrial septum. Mitral Valve Normal mitral valve structure. No mitral valve stenosis or regurgitation. Aortic Valve Aortic valve not well-visualized. No aortic valve stenosis by Doppler. Mild aortic valve regurgitation. Tricuspid Valve Unable to accurately measure pulmonary pressure due to lack of TR jet. Normal pulmonary pressure. Pulmonic Valve Normal pulmonic valve structure. No pulmonic valve stenosis or regurgitation. Pericardium No pericardial effusion. Aorta Aortic root not well-visualized. Status post aorta graft repair. Aorta size looks grossly normal. IVC Dilated IVC with greater than 50% collapse with inspiration. Estimated right atrial pressure 8 mmHg. CONCLUSIONS Segmental left ventricular wall motion abnormality with akinesis of the basal inferoseptal and mid and basal inferior wall segments with overall normal ejection fraction of 54%. Normal right ventricular size and systolic function. Status post aorta graft repair. Aorta size looks grossly normal. Mild aortic valve regurgitation. Ashish Martinez MD, FACC (Electronically Signed) Final Date: 30 November 2025 17:18 S
== END 2025-11-25 08:23 | disposition home or self-care (01) ==
LOC: RAD 08:22
PROVIDERS: PCP Family Medicine; Visit Provider Internal Medicine Cardiovascular Disease
DX: Z98.890 Other specified postprocedural states (principal); R93.1 Abnormal findings on diagnostic imaging of heart and coronary circulation; I35.1 Nonrheumatic aortic (valve) insufficiency; I87.8 Other specified disorders of veins
CPT/HCPCS: 93306